=== PATIENT | female | born 1965 | race Caucasian/White ===

== ENCOUNTER 2017-07-31 05:23 | Inpatient (IN) ==
[2017-07-31] MEDS ORDERED: Dexamethasone 4 MG/ML VIAL IVP ONE (05:35)
--- NOTE | 2017-07-31 06:07 | Emergency Department Note ---
START Narrative - START START: This is a start note. I reviewed vital signs, nursing notes. I saw patient upon her arrival to exam room. Patient is a 51-year-old female that arrives via squad with reported altered mental status. Squad reports the family had reported the patient had become more tired, confused throughout the course the day. Squad reports that there is proximally with patient, as they usually picked her up for her transfer to her dialysis. The mention that she was more confused, which is atypical for her. The also mention the patient had several hypotensive readings, GB 127 Patient mentions that she was too shaky to take her Solu-Cortef that she mentions she needs for her adrenal insufficiency. Patient mentions that she feels more tired. He mentions she has been unable to urinate at all today, but usually she is able to urinate. Patient's last dialysis was 3 days ago (monday). She denies any recent illness , chest pain, shortness breath, abdominal pain. This is a start note. Care of this patient will be continued by dayshift providers Cira Beltran CNP and if needed the daytime attending physicians. Please see their further documentation for details, further evaluation and disposition of patient. I have ordered initial lab work for altered mental status, straight catheter, urinalysis. I have ordered IV Decadron, for possible adrenal crisis due to hypertension, and history of adrenal insufficiency.
[2017-07-31 06:26] LABS: Basophils % 0.7 %; Eosinophils # 0.3 K/mcL (0.0-0.6); Eosinophils % 4.7 %; Hematocrit 38.2 % (35.3-44.9); Hemoglobin 12.5 g/dL (11.5-15.4); Immature Granulocytes % 0.4 % (0-4); Lymphocytes # 1.7 K/mcL (0.6-4.6); Lymphocytes % 30.1 %; Mean Corpuscular HGB Conc 32.7 g/dL (31.6-35.5); Mean Corpuscular Hemoglobin 32.6 pg (28.0-33.3); Mean Corpuscular Volume 99.7 fL (83.0-100.0); Mean Platelet Volume 12.5 fL (9.4-12.4); Monocytes # 0.7 K/mcL (0.0-1.3); Monocytes % 11.6 %; Neutrophils # 2.9 K/mcL (1.6-8.9); Platelet Count 178 K/mcL (140-400); Red Blood Count 3.83 M/mcL (3.82-4.97); Red Cell Distribution Width 13.8 % (11.5-14.5); Segmented Neutrophils % 52.5 %
[2017-07-31 06:27] LABS: Bilirubin,Urine Negative (Negative); Blood,Urine Negative (Negative); Clarity,Urine Cloudy (Clear); Color,Urine Yellow (Yellow); Glucose,Urine (UA) Normal (Normal); Ketones,Urine Negative (Negative); Leukocyte Esterase,Urine Moderate (Negative); Nitrite,Urine Negative (Negative); Protein,Urine Negative (Neg-Trace); Specific Gravity,Urine 1.014 (1.010-1.025); Urobilinogen,Urine Normal (Normal)
[2017-07-31 06:36] LABS: Bacteria,Urine Moderate per hpf (None-Few); Hyaline Casts,Urine None Seen per lpf (None-Few); RBC,Urine 0-3 per hpf (0-3); Squamous Epithelial Cell,Urine None Seen per lpf (None-Few); WBC,Urine 50-100 per hpf (0-3)
[2017-07-31 06:38] LABS: Amphetamine Screen,Urine Negative ng/mL (Cutoff=1000); Barbiturate Screen,Urine Negative ng/mL (Cutoff=200); Benzodiazepines Screen,Urine Negative ng/mL (Cutoff=200); Cannabinoid Screen,Urine Negative ng/mL (Cutoff = 50); Cocaine Screen,Urine Negative ng/mL (Cutoff= 300); Phencyclidine Screen,Urine Negative ng/mL (Cutoff=25)
[2017-07-31 06:48] LABS: Alanine Aminotransferase 38 Units/L (7-52); Albumin 4.2 g/dL (3.5-5.7); Albumin/Globulin Ratio 1.6 (1.1-2.2); Alkaline Phosphatase 92 Units/L (34-104); Aspartate Amino Transferase 26 Units/L (13-39); BUN/Creatinine Ratio 8 (6-26); Bilirubin,Direct 0.1 mg/dL (0.0-0.2); Bilirubin,Indirect 0.5 mg/dL (0.0-1.2); Bilirubin,Total 0.6 mg/dL (0.3-1.0); Blood Urea Nitrogen 51 mg/dL (6-20); Calcium 10.1 mg/dL (8.6-10.3); Carbon Dioxide 33 mEq/L (23-29); Chloride 99 mEq/L (98-107); Ethanol < 10 mg/dL (Less than 10); Globulin 2.6 g/dL (2.4-3.5); Glucose 106 mg/dL (70-105); Osmolality,Calculated 312 (280-300); Potassium 3.6 mEq/L (3.5-5.1); Sodium 144 mEq/L (136-145); Total Protein 6.8 g/dL (6.4-8.9); Troponin I < 0.03 ng/mL (< 0.04); eGFR For African Americans 9 (> 60); eGFR For Non-African Americans 7 (> 60)
--- NOTE | 2017-07-31 06:49 | Emergency Department Note ---
Disposition Clinical Impression: UTI (urinary tract infection) Qualifiers: Urinary tract infection type: site unspecified Hematuria presence: without hematuria Qualified Code(s): N39.0 - Urinary tract infection, site not specified Altered mental status Qualifiers: Altered mental status type: somnolence Qualified Code(s): R40.0 - Somnolence Disposition: Admitted As Inpatient Condition: Fair Altered Mental Status HPI - General Chief Complaint: ED Altered Mental Status Stated Complaint: AMS Time Seen by Provider: 07/31/17 05:30 Source: EMS Limitations: altered mental status Nursing Notes Reviewed: Yes Vital Signs Reviewed: Yes - History of Present Illness HPI Narrative: 51 year old female with history of HTN, DM, chronic kidney disease (need hemodilysis), adrenal deficit, recent abdominal abscess and laparoscopic surgery , presents with mental status change. Pt was sent to hospital by EMS. Per EMS reported, pt was supposed to be picked up for dialysis today. But her family concerned that she seems more confused for a day. Pt stated she was shaky and tired than usual. No chill and fever. No abdominal pain. EMS reported her initial blood pressure was low. BS level 129. Follow up with Nephrology Dr. Montilla. complaint: altered mental status Onset (ago): day(s) (1) Consistency of Symptoms: waxing and waning Context: history of similar presentation Associated symptoms: Reports: malaise - Related Data Home Medications Medication Instructions Recorded Confirmed Dexlansoprazole [Dexilant] 60 mg PO DAILY 01/24/16 07/31/17 FLUoxetine HCl [Prozac] 40 mg PO DAILY 01/24/16 07/31/17 Fluticasone/Salmeterol [Advair Hfa 2 puff IH BID 01/24/16 07/31/17 230-21 Mcg Inhaler] Insulin LISPRO [HumaLOG] 0 units SQ TIDWM 01/24/16 07/31/17 Ipratropium/Albuterol Neb [Duoneb] 3 ml IH Q6HR 01/24/16 07/31/17 Montelukast [Singulair] 10 mg PO DAILY 01/24/16 07/31/17 Ondansetron HCl [Zofran] 4 mg PO Q8H PRN 01/24/16 07/31/17 hydrOXYzine HCl [Hydroxyzine HCl] 25 mg PO TID 01/24/16 07/31/17 Bumetanide [Bumex] 2 mg PO BID 05/06/16 07/31/17 Allopurinol [Zyloprim 100 MG] 100 mg PO DAILY 07/31/17 07/31/17 Aspirin [Lo-Dose Aspirin EC] 81 mg PO DAILY 07/31/17 07/31/17 Atorvastatin [Lipitor] 40 mg PO HS 07/31/17 07/31/17 Clindamycin Phosphate [Cleocin T] 1 appl TP DAILY 07/31/17 07/31/17 Gabapentin [Neurontin] 100 mg PO TID 07/31/17 07/31/17 HYDROcodone/Acet 10/325 mg [[place] 1 tab PO TID 07/31/17 07/31/17 10-325 mg] Hydrochlorothiazide [Microzide] 12.5 mg PO DAILY 07/31/17 07/31/17 Isosorbide MONOnitrate (24 HR) 30 mg PO DAILY 07/31/17 07/31/17 [Imdur] Liraglutide [Victoza 2-Nilson] 0.6 mg PO DAILY 07/31/17 07/31/17 Metoprolol Tartrate [Lopressor] 50 mg PO BID 07/31/17 07/31/17 Nystatin Cream [Mycostatin Cream] 1 appl TP TID 07/31/17 07/31/17 Nystatin POWDER [Nystop] 1 appl TP TID 07/31/17 07/31/17 Polyethylene Glycol 3350 [MiraLAX] 17 gm PO DAILY 07/31/17 07/31/17 Previous Rx's Medication Instructions Recorded Hydrocortisone [Cortef] 10 mg PO DAILY #25 tablet 01/10/17 Allergies Allergy/AdvReac Type Severity Reaction Status Date / Time cefdinir Allergy Hives Verified 04/03/17 13:50 ciprofloxacin [From Cipro] Allergy Hives Verified 04/03/17 13:50 levofloxacin [From Levaquin] Allergy Anaphylaxis Verified 04/03/17 13:50 metformin [From Glucophage] Allergy Rash Verified 04/03/17 13:50 Penicillins Allergy Hives Verified 04/03/17 13:50 pioglitazone [From Actos] Allergy Hives Verified 04/03/17 13:50 Sulfa (Sulfonamide Allergy Itching Verified 04/03/17 13:50 Antibiotics) sulfamethoxazole Allergy Itching Verified 04/03/17 13:50 [From Bactrim] trimethoprim [From Bactrim] Allergy Itching Verified 04/03/17 13:50 exenatide [From Byetta] AdvReac See Verified 04/03/17 13:50 Comments vancomycin AdvReac See Verified 04/03/17 13:50 Comments Constitutional: Reports: weakness. Denies: fever, chills Eyes: Denies: eye pain, eye discharge, vision change ENT ED: Denies: ear pain, throat pain, dental pain Cardiovascular: Denies: chest pain, palpitations, dyspnea on exertion Respiratory: Denies: cough, dyspnea, wheezes Gastrointestinal: Denies: abdominal pain, nausea, vomiting Genitourinary: Denies: urgency, dysuria, frequency Musculoskeletal: Denies: back pain, neck pain, joint swelling Integumentary: Denies: rash, abrasion, lesions Neurological: Reports: weakness, confusion. Denies: headache Psychiatric: Denies: anxiety, depression, suicidal thoughts Endocrine: Denies: fatigue, heat or cold intolerance Hematological/Lymphatic: Denies: easy bleeding, easy bruising Allergic/Immunologic: Denies: facial swelling, urticaria Past Medical History - Past Medical History Medical history: Reports: non-contributory, arthritis, asthma, atrial fibrillation, CHF, COPD, coronary artery disease, diabetes, dialysis, GERD, hyperlipidemia, hypertension, migraine, renal disease, seizures, thyroid disease Surgical history: Reports: non-contributory, cholecystectomy Psychiatric history: Reports: depression COUNTY COMMISSIONER history: Reports: no COUNTY COMMISSIONER history - Social History Smoking Status: Never smoker Smokeless Tobacco Status: No Alcohol use: Reports: none Drug use: Reports: none Physical Exam - General Limitations: altered mental status General appearance: lethargic - Head Head exam: atraumatic, normal inspection - Eye Eye exam: Present: normal appearance. Absent: scleral icterus, conjunctival injection - ENT ENT exam: normal exam, normal external ear exam - Neck Neck exam: Present: normal inspection, full ROM, trachea midline - Chest Chest inspection: Present: normal inspection, symmetric chest wall rise. Absent : tenderness - Respiratory Respiratory exam: Present: normal lung sounds bilaterally. Absent: respiratory distress, wheezes - Cardiovascular Cardiovascular exam: Present: regular rate, normal rhythm - Abdominal Exam Abdominal exam: Present: soft, Non-Tender, other (a surgical wound from laparoscopic surgery three weeks ago) - Extremities Exam Extremities exam: Present: normal inspection, full ROM. Absent: tenderness - Back Exam Back exam: Present: normal inspection, full ROM. Absent: tenderness - Neurological Exam Neurological exam: Present: alert, oriented X3, other (pt is alert and oriented in ER, she seems lethargic) - Psychiatric Psychiatric exam: Present: normal affect, normal mood - Skin Skin exam: Present: warm, intact Course Vital Signs Temperature 98.4 F 07/31/17 05:27 Pulse Rate 62 07/31/17 05:27 Respiratory Rate 18 07/31/17 05:27 Blood Pressure 124/82 07/31/17 05:27 O2 Sat by Pulse Oximetry 100 07/31/17 05:27 Temperature 97.7 F 07/31/17 07:36 Pulse Rate 58 07/31/17 07:36 Respiratory Rate 16 07/31/17 07:36 Blood Pressure 124/82 07/31/17 05:27 O2 Sat by Pulse Oximetry 96 07/31/17 07:36 Oxygen Delivery Oxygen Delivery Room Air,Nasal Cannula Altered Mental Status - MDM Narrative Medical decision making narrative: 51 year old female with history of chronic kidney disease, adrenal deficit, HTN , DM, presents with mental status change. pt reported she felt shaky and more tired since yesterday. no chill and fever. Physical exam: pt is lethargic, bilateral lungs clear, abdomen soft, no tender to palpation, no other focal neurology deficit. Labs: UA: moderate Leukocyte, moderate bacteria. normal white cell and Lactic acid, CR. >6. chest xr: no acute change. Impression: altered mental status, UTI, chronic kidney disease (need dialysis). Started Rocephin in ER. Dr. Branden Camacho saw the pt as well, agrees to admit pt for further evaluation. 8:30 am spoke with Hospitalist Dr. Couch about this case, who accepted pt. - Lab Data Lab results reviewed: Yes I reviewed the patient's lab results. Result diagrams: 07/31/17 06:05 07/31/17 06:05 Lab Results 07/31/17 07/31/17 07/31/17 Range/Units 06:05 06:05 06:19 WBC 5.6 (4.3-11.1) K/mcL RBC 3.83 (3.82-4.97) M/mcL Hgb 12.5 (11.5-15.4) g/dL Hct 38.2 (35.3-44.9) % MCV 99.7 (83.0-100.0) fL MCH 32.6 (28.0-33.3) pg MCHC 32.7 (31.6-35.5) g/dL RDW 13.8 (11.5-14.5) % Plt Count 178 (140-400) K/mcL MPV 12.5 H (9.4-12.4) fL Immature Gran % 0.4 (0-4) % Seg Neutrophils % 52.5 % Lymphocytes % 30.1 % Monocytes % 11.6 % Eosinophils % 4.7 % Basophils % 0.7 % Neutrophils # 2.9 (1.6-8.9) K/mcL Lymphocytes # 1.7 (0.6-4.6) K/mcL Monocytes # 0.7 (0.0-1.3) K/mcL Eosinophils # 0.3 (0.0-0.6) K/mcL Basophils # 0.0 (0.0-0.2) K/mcL Sodium 144 (136-145) mEq/L Potassium 3.6 (3.5-5.1) mEq/L Chloride 99 (98-107) mEq/L Carbon Dioxide 33 H (23-29) mEq/L BUN 51 H (6-20) mg/dL Creatinine 6.16 H (0.60-1.20) mg/dL Est GFR ( Amer) 9 L (> 60) Est GFR (Non-Af Amer) 7 L (> 60) BUN/Creatinine Ratio 8 (6-26) Glucose 106 H (70-105) mg/dL Calculated Osmolality 312 H (280-300) Lactic Acid (0.5-2.2) mmol/L Calcium 10.1 (8.6-10.3) mg/dL Total Bilirubin 0.6 (0.3-1.0) mg/dL Direct Bilirubin 0.1 (0.0-0.2) mg/dL Indirect Bilirubin 0.5 (0.0-1.2) mg/dL AST 26 (13-39) Units/L ALT 38 (7-52) Units/L Alkaline Phosphatase 92 (34-104) Units/L Ammonia (16-53) mcmol/L Troponin I < 0.03 (< 0.04) ng/mL Serum Total Protein 6.8 (6.4-8.9) g/dL Albumin 4.2 (3.5-5.7) g/dL Globulin 2.6 (2.4-3.5) g/dL Albumin/Globulin Ratio 1.6 (1.1-2.2) Urine Color Yellow (Yellow) Urine Clarity Cloudy A (Clear) Urine pH 6.0 (5.0-8.0) pH Units Ur Specific [place] 1.014 (1.010-1.025) Urine Protein Negative (Neg-Trace) mg/dL Urine Glucose (UA) Normal (Normal) mg/dL Urine Ketones Negative (Negative) mg/dL Urine Blood Negative (Negative) Urine Nitrite Negative (Negative) Urine Bilirubin Negative (Negative) Urine Urobilinogen Normal (Normal) mg/dL Ur Leukocyte Esterase Moderate H (Negative) Urine Microscopic RBC 0-3 (0-3) per hpf Urine Microscopic WBC 50-100 H (0-3) per hpf Ur Squamous Epith Cells None Seen (None-Few) per lpf Urine Bacteria Moderate H (None-Few) per hpf Hyaline Casts None Seen (None-Few) per lpf Ur Culture Indicated? YES A (NO) Urine Opiates Screen (Wwqaax=806) ng/mL Ur Barbiturates Screen (Jlvqdh=659) ng/mL Ur Phencyclidine Scrn (Cutoff=25) ng/mL Ur Amphetamines Screen (Mwxrdq=4439) ng/mL U Benzodiazepines Scrn (Ijesuy=547) ng/mL Urine Cocaine Screen (Cutoff= 300) ng/mL U Marijuana (THC) Screen (Cutoff = 50) ng/mL Ethyl Alcohol < 10 (Less than 10) mg/dL 07/31/17 07/31/17 07/31/17 Range/Units 06:19 06:19 08:10 WBC (4.3-11.1) K/mcL RBC (3.82-4.97) M/mcL Hgb (11.5-15.4) g/dL Hct (35.3-44.9) % MCV (83.0-100.0) fL MCH (28.0-33.3) pg MCHC (31.6-35.5) g/dL RDW (11.5-14.5) % Plt Count (140-400) K/mcL MPV (9.4-12.4) fL Immature Gran % (0-4) % Seg Neutrophils % % Lymphocytes % % Monocytes % % Eosinophils % % Basophils % % Neutrophils # (1.6-8.9) K/mcL Lymphocytes # (0.6-4.6) K/mcL Monocytes # (0.0-1.3) K/mcL Eosinophils # (0.0-0.6) K/mcL Basophils # (0.0-0.2) K/mcL Sodium (136-145) mEq/L Potassium (3.5-5.1) mEq/L Chloride (98-107) mEq/L Carbon Dioxide (23-29) mEq/L BUN (6-20) mg/dL Creatinine (0.60-1.20) mg/dL Est GFR ( Amer) (> 60) Est GFR (Non-Af Amer) (> 60) BUN/Creatinine Ratio (6-26) Glucose (70-105) mg/dL Calculated Osmolality (280-300) Lactic Acid 1.6 (0.5-2.2) mmol/L Calcium (8.6-10.3) mg/dL Total Bilirubin (0.3-1.0) mg/dL Direct Bilirubin (0.0-0.2) mg/dL Indirect Bilirubin (0.0-1.2) mg/dL AST (13-39) Units/L ALT (7-52) Units/L Alkaline Phosphatase (34-104) Units/L Ammonia 27 (16-53) mcmol/L Troponin I (< 0.04) ng/mL Serum Total Protein (6.4-8.9) g/dL Albumin (3.5-5.7) g/dL Globulin (2.4-3.5) g/dL Albumin/Globulin Ratio (1.1-2.2) Urine Color (Yellow) Urine Clarity (Clear) Urine pH (5.0-8.0) pH Units Ur Specific [place] (1.010-1.025) Urine Protein (Neg-Trace) mg/dL Urine Glucose (UA) (Normal) mg/dL Urine Ketones (Negative) mg/dL Urine Blood (Negative) Urine Nitrite (Negative) Urine Bilirubin (Negative) Urine Urobilinogen (Normal) mg/dL Ur Leukocyte Esterase (Negative) Urine Microscopic RBC (0-3) per hpf Urine Microscopic WBC (0-3) per hpf Ur Squamous Epith Cells (None-Few) per lpf Urine Bacteria (None-Few) per hpf Hyaline Casts (None-Few) per lpf Ur Culture Indicated? (NO) Urine Opiates Screen Positive H (Gnkczb=257) ng/mL Ur Barbiturates Screen Negative (Obsdyp=941) ng/mL Ur Phencyclidine Scrn Negative (Cutoff=25) ng/mL Ur Amphetamines Screen Negative (Ygyidn=5953) ng/mL U Benzodiazepines Scrn Negative (Xlmaah=344) ng/mL Urine Cocaine Screen Negative (Cutoff= 300) ng/mL U Marijuana (THC) Screen Negative (Cutoff = 50) ng/mL Ethyl Alcohol (Less than 10) mg/dL - Radiology Data Radiology results reviewed: Yes I reviewed the patient's radiology results. HISTORY: ORDERING SYSTEM PROVIDED HISTORY: altered mental status Asthma, atrial fibrillation, congestive heart failure, COPD, hypertension FINDINGS: Evaluation is limited by the patient's body habitus the portable technique. Bra hooks project over the left side of the chest. There is no definite acute airspace disease. The heart size is mildly enlarged. There is no large pleural effusion or definite evidence for pneumothorax. XR/XR chest 1V portable IMPRESSION: Limited but grossly negative portable chest. D/ / Uziel Burgos MD / Uziel Burgos MD Interpreting Provider: Uziel Burgos MD Checklist - LKW: 3-4.5 hrs Add. Warnings/Precautions Patient/family understanding: The patient/family members have been counseled and understood the risk, benefit , and alternatives of treatment.
[2017-07-31] MEDS ORDERED: cefTRIAXone 2,000 MG in 0.9 % Sodium Chloride Mini Bag 100 ML IVPB ONE (08:11)
--- NOTE | 2017-07-31 08:22 | Emergency Department Note ---
Disposition Clinical Impression: UTI (urinary tract infection) Qualifiers: Urinary tract infection type: site unspecified Hematuria presence: without hematuria Qualified Code(s): N39.0 - Urinary tract infection, site not specified Disposition: Admitted As Inpatient Referrals: Keli Montilla DO [Primary Care Provider] - Forms: ED Satisfaction Letter General Adult HPI - General Chief complaint: ED Altered Mental Status Stated complaint: AMS Time Seen by Provider: 07/31/17 05:30 Source: EMS Limitations: altered mental status - History of Present Illness Pain Scale: 0 - Related Data Home Medications Medication Instructions Recorded Confirmed Allopurinol [Zyloprim] 100 mg PO DAILY 01/24/16 07/16/17 Aspirin [Lo-Dose Aspirin EC] 81 mg PO DAILY 01/24/16 07/16/17 Atorvastatin Calcium [Lipitor] 80 mg PO DAILY 01/24/16 07/16/17 Baclofen [Lioresal] 10 mg PO TID 01/24/16 07/16/17 Dexlansoprazole [Dexilant] 60 mg PO DAILY 01/24/16 07/16/17 FLUoxetine HCl [Prozac] 40 mg PO DAILY 01/24/16 07/16/17 Fluticasone/Salmeterol [Advair Hfa 2 puff IH BID 01/24/16 07/16/17 230-21 Mcg Inhaler] Gabapentin [Neurontin] 300 mg PO TID 01/24/16 07/16/17 HYDROcodone/Acet 5/325 mg [Arma 1 tab PO Q8H PRN 01/24/16 07/16/17 5-325 mg] Insulin LISPRO [HumaLOG] 2 - 16 units SQ TIDWM 01/24/16 07/16/17 Ipratropium/Albuterol Neb [Duoneb] 3 ml IH Q6HR 01/24/16 07/16/17 Metoprolol XL (24 HR) Succ [Toprol 100 mg PO BID 01/24/16 07/16/17 Xl] Montelukast [Singulair] 10 mg PO DAILY 01/24/16 07/16/17 Ondansetron HCl [Zofran] 4 mg PO Q8H PRN 01/24/16 07/16/17 hydrOXYzine HCl [Hydroxyzine HCl] 25 mg PO TID 01/24/16 07/16/17 Bumetanide [Bumex] 1 mg PO DAILY 05/06/16 07/16/17 Previous Rx's Medication Instructions Recorded Benzonatate [Tessalon] 100 mg PO TID #15 capsule 01/10/17 Hydrocortisone [Cortef] 10 mg PO DAILY #25 tablet 01/10/17 Clindamycin HCl 150 mg PO TID #21 capsule 03/01/17 Erythromycin OPTH Oint 1 appl RIGHT EYE QID #1 tube 03/01/17 Nitrofurantoin (BID) [Macrobid] 100 mg PO BID #10 capsule 04/03/17 Oseltamivir [Tamiflu] 75 mg PO BID #10 capsule 04/03/17 Allergies Allergy/AdvReac Type Severity Reaction Status Date / Time cefdinir Allergy Hives Verified 04/03/17 13:50 ciprofloxacin [From Cipro] Allergy Hives Verified 04/03/17 13:50 levofloxacin [From Levaquin] Allergy Anaphylaxis Verified 04/03/17 13:50 metformin [From Glucophage] Allergy Rash Verified 04/03/17 13:50 Penicillins Allergy Hives Verified 04/03/17 13:50 pioglitazone [From Actos] Allergy Hives Verified 04/03/17 13:50 Sulfa (Sulfonamide Allergy Itching Verified 04/03/17 13:50 Antibiotics) sulfamethoxazole Allergy Itching Verified 04/03/17 13:50 [From Bactrim] trimethoprim [From Bactrim] Allergy Itching Verified 04/03/17 13:50 exenatide [From Byetta] AdvReac See Verified 04/03/17 13:50 Comments vancomycin AdvReac See Verified 04/03/17 13:50 Comments Constitutional: Reports: weakness. Denies: fever, chills Eyes: Denies: eye pain, eye discharge, vision change ENT ED: Denies: ear pain, throat pain, dental pain Cardiovascular: Denies: chest pain, palpitations, dyspnea on exertion Respiratory: Denies: cough, dyspnea, wheezes Gastrointestinal: Denies: abdominal pain, nausea, vomiting Genitourinary: Denies: urgency, dysuria, frequency Musculoskeletal: Denies: back pain, neck pain, joint swelling Integumentary: Denies: rash, abrasion, lesions Neurological: Reports: weakness, confusion. Denies: headache Psychiatric: Denies: anxiety, depression, suicidal thoughts Endocrine: Denies: fatigue, heat or cold intolerance Hematological/Lymphatic: Denies: easy bleeding, easy bruising Allergic/Immunologic: Denies: facial swelling, urticaria Past Medical History - Past Medical History Medical history: Reports: non-contributory, arthritis, asthma, atrial fibrillation, CHF, COPD, coronary artery disease, diabetes, dialysis, GERD, hyperlipidemia, hypertension, migraine, renal disease, seizures, thyroid disease Surgical history: Reports: non-contributory, cholecystectomy Psychiatric history: Reports: depression [employer] SUPER[employer]OR history: Reports: 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 - Social History Smoking Status: Never smoker Smokeless Tobacco Status: No Alcohol use: Reports: none Drug use: Reports: none Physical Exam - General Limitations: altered mental status General appearance: lethargic Course Vital Signs Temperature 98.4 F 07/31/17 05:27 Pulse Rate 62 07/31/17 05:27 Respiratory Rate 18 07/31/17 05:27 Blood Pressure 124/82 07/31/17 05:27 O2 Sat by Pulse Oximetry 100 07/31/17 05:27 Temperature 97.7 F 07/31/17 07:36 Pulse Rate 58 07/31/17 07:36 Respiratory Rate 16 07/31/17 07:36 Blood Pressure 124/82 07/31/17 05:27 O2 Sat by Pulse Oximetry 96 07/31/17 07:36 Oxygen Delivery Oxygen Delivery Room Air,Nasal Cannula Medical Decision Making - Lab Data Result diagrams: 07/31/17 06:05 07/31/17 06:05 Lab Results 07/31/17 07/31/17 07/31/17 Range/Units 06:05 06:05 06:19 WBC 5.6 (4.3-11.1) K/mcL RBC 3.83 (3.82-4.97) M/mcL Hgb 12.5 (11.5-15.4) g/dL Hct 38.2 (35.3-44.9) % MCV 99.7 (83.0-100.0) fL MCH 32.6 (28.0-33.3) pg MCHC 32.7 (31.6-35.5) g/dL RDW 13.8 (11.5-14.5) % Plt Count 178 (140-400) K/mcL MPV 12.5 H (9.4-12.4) fL Immature Gran % 0.4 (0-4) % Seg Neutrophils % 52.5 % Lymphocytes % 30.1 % Monocytes % 11.6 % Eosinophils % 4.7 % Basophils % 0.7 % Neutrophils # 2.9 (1.6-8.9) K/mcL Lymphocytes # 1.7 (0.6-4.6) K/mcL Monocytes # 0.7 (0.0-1.3) K/mcL Eosinophils # 0.3 (0.0-0.6) K/mcL Basophils # 0.0 (0.0-0.2) K/mcL Sodium 144 (136-145) mEq/L Potassium 3.6 (3.5-5.1) mEq/L Chloride 99 (98-107) mEq/L Carbon Dioxide 33 H (23-29) mEq/L BUN 51 H (6-20) mg/dL Creatinine 6.16 H (0.60-1.20) mg/dL Est GFR ( Amer) 9 L (> 60) Est GFR (Non-Af Amer) 7 L (> 60) BUN/Creatinine Ratio 8 (6-26) Glucose 106 H (70-105) mg/dL Calculated Osmolality 312 H (280-300) Lactic Acid (0.5-2.2) mmol/L Calcium 10.1 (8.6-10.3) mg/dL Total Bilirubin 0.6 (0.3-1.0) mg/dL Direct Bilirubin 0.1 (0.0-0.2) mg/dL Indirect Bilirubin 0.5 (0.0-1.2) mg/dL AST 26 (13-39) Units/L ALT 38 (7-52) Units/L Alkaline Phosphatase 92 (34-104) Units/L Troponin I < 0.03 (< 0.04) ng/mL Serum Total Protein 6.8 (6.4-8.9) g/dL Albumin 4.2 (3.5-5.7) g/dL Globulin 2.6 (2.4-3.5) g/dL Albumin/Globulin Ratio 1.6 (1.1-2.2) Urine Color Yellow (Yellow) Urine Clarity Cloudy A (Clear) Urine pH 6.0 (5.0-8.0) pH Units Ur Specific [place] 1.014 (1.010-1.025) Urine Protein Negative (Neg-Trace) mg/dL Urine Glucose (UA) Normal (Normal) mg/dL Urine Ketones Negative (Negative) mg/dL Urine Blood Negative (Negative) Urine Nitrite Negative (Negative) Urine Bilirubin Negative (Negative) Urine Urobilinogen Normal (Normal) mg/dL Ur Leukocyte Esterase Moderate H (Negative) Urine Microscopic RBC 0-3 (0-3) per hpf Urine Microscopic WBC 50-100 H (0-3) per hpf Ur Squamous Epith Cells None Seen (None-Few) per lpf Urine Bacteria Moderate H (None-Few) per hpf Hyaline Casts None Seen (None-Few) per lpf Ur Culture Indicated? YES A (NO) Ur Barbiturates Screen (Ejgnqu=824) ng/mL Ur Phencyclidine Scrn (Cutoff=25) ng/mL Ur Amphetamines Screen (Peszae=8239) ng/mL U Benzodiazepines Scrn (Aeavin=347) ng/mL Urine Cocaine Screen (Cutoff= 300) ng/mL U Marijuana (THC) Screen (Cutoff = 50) ng/mL Ethyl Alcohol < 10 (Less than 10) mg/dL 07/31/17 07/31/17 Range/Units 06:19 06:19 WBC (4.3-11.1) K/mcL RBC (3.82-4.97) M/mcL Hgb (11.5-15.4) g/dL Hct (35.3-44.9) % MCV (83.0-100.0) fL MCH (28.0-33.3) pg MCHC (31.6-35.5) g/dL RDW (11.5-14.5) % Plt Count (140-400) K/mcL MPV (9.4-12.4) fL Immature Gran % (0-4) % Seg Neutrophils % % Lymphocytes % % Monocytes % % Eosinophils % % Basophils % % Neutrophils # (1.6-8.9) K/mcL Lymphocytes # (0.6-4.6) K/mcL Monocytes # (0.0-1.3) K/mcL Eosinophils # (0.0-0.6) K/mcL Basophils # (0.0-0.2) K/mcL Sodium (136-145) mEq/L Potassium (3.5-5.1) mEq/L Chloride (98-107) mEq/L Carbon Dioxide (23-29) mEq/L BUN (6-20) mg/dL Creatinine (0.60-1.20) mg/dL Est GFR ( Amer) (> 60) Est GFR (Non-Af Amer) (> 60) BUN/Creatinine Ratio (6-26) Glucose (70-105) mg/dL Calculated Osmolality (280-300) Lactic Acid 1.6 (0.5-2.2) mmol/L Calcium (8.6-10.3) mg/dL Total Bilirubin (0.3-1.0) mg/dL Direct Bilirubin (0.0-0.2) mg/dL Indirect Bilirubin (0.0-1.2) mg/dL AST (13-39) Units/L ALT (7-52) Units/L Alkaline Phosphatase (34-104) Units/L Troponin I (< 0.04) ng/mL Serum Total Protein (6.4-8.9) g/dL Albumin (3.5-5.7) g/dL Globulin (2.4-3.5) g/dL Albumin/Globulin Ratio (1.1-2.2) Urine Color (Yellow) Urine Clarity (Clear) Urine pH (5.0-8.0) pH Units Ur Specific [place] (1.010-1.025) Urine Protein (Neg-Trace) mg/dL Urine Glucose (UA) (Normal) mg/dL Urine Ketones (Negative) mg/dL Urine Blood (Negative) Urine Nitrite (Negative) Urine Bilirubin (Negative) Urine Urobilinogen (Normal) mg/dL Ur Leukocyte Esterase (Negative) Urine Microscopic RBC (0-3) per hpf Urine Microscopic WBC (0-3) per hpf Ur Squamous Epith Cells (None-Few) per lpf Urine Bacteria (None-Few) per hpf Hyaline Casts (None-Few) per lpf Ur Culture Indicated? (NO) Ur Barbiturates Screen Negative (Ebitga=979) ng/mL Ur Phencyclidine Scrn Negative (Cutoff=25) ng/mL Ur Amphetamines Screen Negative (Cuupzm=9595) ng/mL U Benzodiazepines Scrn Negative (Qhwpem=710) ng/mL Urine Cocaine Screen Negative (Cutoff= 300) ng/mL U Marijuana (THC) Screen Negative (Cutoff = 50) ng/mL Ethyl Alcohol (Less than 10) mg/dL Attestation Statement - Attestation Attestation: I examined this patient and my medical decision-making was reviewed with the Resident Physician. I agree with the documented findings, disposition and treatment plan as described except to the extent set forth below. 51 year old female presnte to the Ed with alteredm ental status and drowsy and recieve dialysis and makes urine and doctors with Dr. Casas for nephrology. Bruce appears to have a UTI. Otherwise all other electrolytes are at baseline and her crn/gfr are at baseline. wE adan dmit to [facility] for AMS/UTI and continue dialysis therapy
[2017-07-31 08:26] LABS: Opiate Screen,Urine Positive ng/mL (Cutoff=300)
--- NOTE | 2017-07-31 12:33 | Internal Med History&Physical ---
Date of Encounter: 07/31/17 Time of Encounter: 11:00 Internal Medicine - H&P: HPI Chief complaint: Somnolence Admitted From: Home Plans for Post Hospital Care: Home History of present illness: Patient is a 51-year-old female with past medical history significant for end stage renal disease with hemodialysis, O2 dependent COPD (3-4 L nasal cannula), ischemic cardiomyopathy, adrenal insufficiency, hypertension, hyperlipidemia, diabetes and mood disorder who presents to the ER on 07/31/17 due to 1 day history of extreme fatigue. Patient not able to give much history because of extreme somnolence during exam. She does mention that she has these symptoms with adrenal crisis in the past. She also states that she missed her hemodialysis today due to extreme somnolence. In the ER, patient was found to have pyuria on urinalysis and a creatinine of 6.16 and GFR of 7. In the ER, patient was given a one-time dose of Decadron 4 mg IV in addition to a one-time dose of ceftriaxone. A random cortisol level was ordered by myself which was 3.8. She will be admitted to the progressive unit for adrenal crisis with urinary tract infection. Past Med Surg Social Fam HX - Past Medical History Medical history: non-contributory, arthritis, asthma, atrial fibrillation, CHF, COPD, coronary artery disease, diabetes, dialysis, GERD, hyperlipidemia, hypertension, migraine, renal disease, seizures, thyroid disease Psychiatric history: depression - Past Surgical History Surgical History: non-contributory, cholecystectomy - Social History Smoking Status: Never smoker Smokeless Tobacco Status: No Alcohol use: none Drug use: none - Family History Mother Living Status: Hx Family Cardiac Disorders: Yes Father Living Status: Hx Family Cardiac Disorders: Yes Internal Medicine - H&P: Meds Dexlansoprazole [Dexilant] 60 mg PO DAILY 01/24/16 [History] FLUoxetine HCl [Prozac] 40 mg PO DAILY 01/24/16 [History] Fluticasone/Salmeterol [Advair Hfa 230-21 Mcg Inhaler] 2 puff IH BID 01/24/16 [ History] Insulin LISPRO [HumaLOG] 0 units SQ TIDWM 01/24/16 [History] Ipratropium/Albuterol Neb [Duoneb] 3 ml IH Q6HR 01/24/16 [History] Montelukast [Singulair] 10 mg PO DAILY 01/24/16 [History] Ondansetron HCl [Zofran] 4 mg PO Q8H PRN 01/24/16 [History] hydrOXYzine HCl [Hydroxyzine HCl] 25 mg PO TID 01/24/16 [History] Bumetanide [Bumex] 2 mg PO BID 05/06/16 [History] Hydrocortisone [Cortef] 10 mg PO DAILY #25 tablet 01/10/17 [Rx] Allopurinol [Zyloprim 100 MG] 100 mg PO DAILY 07/31/17 [History] Aspirin [Lo-Dose Aspirin EC] 81 mg PO DAILY 07/31/17 [History] Atorvastatin [Lipitor] 40 mg PO HS 07/31/17 [History] Clindamycin Phosphate [Cleocin T] 1 appl TP DAILY 07/31/17 [History] Gabapentin [Neurontin] 100 mg PO TID 07/31/17 [History] HYDROcodone/Acet 10/325 mg [[place] 10-325 mg] 1 tab PO TID 07/31/17 [History] Hydrochlorothiazide [Microzide] 12.5 mg PO DAILY 07/31/17 [History] Isosorbide MONOnitrate (24 HR) [Imdur] 30 mg PO DAILY 07/31/17 [History] Liraglutide [Victoza 2-Nilson] 0.6 mg PO DAILY 07/31/17 [History] Metoprolol Tartrate [Lopressor] 50 mg PO BID 07/31/17 [History] Nystatin Cream [Mycostatin Cream] 1 appl TP TID 07/31/17 [History] Nystatin POWDER [Nystop] 1 appl TP TID 07/31/17 [History] Polyethylene Glycol 3350 [MiraLAX] 17 gm PO DAILY 07/31/17 [History] 3 Allergy/AdvReac Type Severity Reaction Status Date / Time cefdinir Allergy Hives Verified 04/03/17 13:50 ciprofloxacin [From Cipro] Allergy Hives Verified 04/03/17 13:50 levofloxacin [From Levaquin] Allergy Anaphylaxis Verified 04/03/17 13:50 metformin [From Glucophage] Allergy Rash Verified 04/03/17 13:50 Penicillins Allergy Hives Verified 04/03/17 13:50 pioglitazone [From Actos] Allergy Hives Verified 04/03/17 13:50 Sulfa (Sulfonamide Allergy Itching Verified 04/03/17 13:50 Antibiotics) sulfamethoxazole Allergy Itching Verified 04/03/17 13:50 [From Bactrim] trimethoprim [From Bactrim] Allergy Itching Verified 04/03/17 13:50 exenatide [From Byetta] AdvReac See Verified 04/03/17 13:50 Comments vancomycin AdvReac See Verified 04/03/17 13:50 Comments All Systems PM: A 10-system review of systems was performed and is negative for pertinent findings except as documented above in the HPI. - Constitutional Vitals: Temp Pulse Resp BP Pulse Ox 98.0 F 71 17 113/72 94 07/31/17 12:06 07/31/17 12:06 07/31/17 12:06 07/31/17 12:06 07/31/17 12:06 General appearance: Present: A&O X 3, morbidly obese, no acute distress - Eye Eye exam: Present: normal appearance - ENT ENT exam: Present: mucous membranes moist - Respiratory Respiratory exam: Present: CTAB. Absent: accessory muscle use, rales, rhonchi, wheezes - Cardiovascular Cardiovascular exam: Present: RRR, +S1, +S2. Absent: diastolic murmur, gallop, rubs, systolic murmur - GI/Abdominal GI/Abdominal exam: Present: normal bowel sounds, soft, no peritoneal signs. Absent: distended, tenderness - Extremities Exam Extremities exam: Absent: pedal edema - Neurological Exam Neurological exam: Present: oriented X3 - Psychiatric Psychiatric exam: Present: normal mood - Skin Skin exam: Present: normal color Internal Med - H&P Results - Labs CBC & Chem 7: 07/31/17 06:05 07/31/17 06:05 - Assessment and plan (1) Adrenal insufficiency Current Visit: No Status: Acute Assessment and plan: Patient very somnolent on exam with a random cortisol level of 3.8 She already received 4 mg of Decadron IV 1 in the ER Will order for 4 mg of Decadron IV to be given every 12 hours Will monitor vital signs every hour (2) Urinary tract infection Current Visit: Yes Status: Acute Assessment and plan: Patient found to have pyuria on urinalysis in the ER Will continue IV ceftriaxone; cultures pending Qualifiers: Urinary tract infection type: site unspecified Hematuria presence: without hematuria Qualified Code(s): N39.0 - Urinary tract infection, site not specified (3) Acute hypercapnic respiratory failure due to obstructive sleep apnea Current Visit: No Status: Acute Assessment and plan: Will continue supplemental oxygenation (4) Obesity Current Visit: Yes Status: Acute Assessment and plan: BMI of 59.2 Qualifiers: Body mass index: BMI 50.0-59.9 Qualified Code(s): E66.9 - Obesity, unspecified; Z68.43 - Body mass index (BMI) 50-59.9 , adult (5) DVT prophylaxis Current Visit: No Status: Acute Assessment and plan: Subcutaneous heparin - Time Spent With Patient Total time spent is greater than 50% in coordination of care (as documented) at patient's floor/unit and/or counseling patient:
[2017-07-31] MEDS ORDERED: Naloxone 0.4 MG/ML INJ IVP PRN (12:46)
[2017-07-31] MEDS: *HR* Heparin 5,000 UNIT/ML VIAL SQ SCH ×2 (15:05→22:31)
[2017-07-31] MEDS: *HR* HYDROcodone/Acet 10/325 mg TABLET PO SCH ×2 (15:05→20:04)
[2017-07-31] MEDS: Gabapentin 100 MG CAPSULE PO SCH ×2 (15:05→20:03)
[2017-07-31] MEDS: cefTRIAXone 2,000 MG in Water for inj. (sterile) 20 ML 20 ML IVP SCH (15:06)
[2017-07-31] MEDS: Nystatin POWDER 30 GM BOTTLE TP SCH ×2 (15:07→22:32)
[2017-07-31] MEDS: Nystatin Cream 15 GM TUBE TP SCH ×2 (15:07→22:32)
[2017-07-31] MEDS: Ipratropium/Albuterol Neb 3 ML IH SCH ×2 (16:26→22:56)
--- NOTE | 2017-07-31 17:10 | Electrocardiograph Report ---
[place] [facility] Test Date: 2017-07-31 Pat Name: Samina Jimenez Department: 102 Room: 2N12 Gender: F Slurry Control Tender: : 1965 Requested By: Saad Blanchard Order Number: [id number] Reading MD: Ayaz Carter Measurements Intervals [place] Rate: 58 P: 39 [place]: 189 QRS: 47 QRSD: 132 T: 34 QT: 430 QTc: 428 Interpretive Statements SINUS BRADYCARDIA INTRAVENTRICULAR CONDUCTION DELAY [130+ ms QRS DURATION] POSSIBLE LATERAL MYOCARDIAL INFARCTION [30 ms Q WAVE IN I/aVL/V5/V6], OF INDETERMINATE AGE Electronically Signed On 07-31-2017 17:08:56 EDT by Ayaz Carter
[2017-07-31] MEDS: Dexamethasone 4 MG/ML VIAL IVP SCH (17:22)
[2017-07-31] MEDS: Bumetanide 1 MG TABLET PO SCH (20:03)
[2017-07-31] MEDS: Budesonide/Formoterol 160/4.5 MDI IH SCH (22:56)
[2017-08-01] MEDS: Ipratropium/Albuterol Neb 3 ML IH SCH ×3 (04:16→10:55)
[2017-08-01] MEDS: Dexamethasone 4 MG/ML VIAL IVP SCH ×2 (04:57→17:30)
[2017-08-01] MEDS: *HR* Heparin 5,000 UNIT/ML VIAL SQ SCH ×3 (04:57→21:12)
[2017-08-01 06:51] LABS: Basophils % 0.3 %; Eosinophils % 0.3 %; Hematocrit 34.2 % (35.3-44.9); Hemoglobin 11.2 g/dL (11.5-15.4); Immature Granulocytes % 2.9 % (0-4); Lymphocytes # 0.8 K/mcL (0.6-4.6); Lymphocytes % 10.4 %; Mean Corpuscular HGB Conc 32.7 g/dL (31.6-35.5); Mean Corpuscular Hemoglobin 31.9 pg (28.0-33.3); Mean Corpuscular Volume 97.4 fL (83.0-100.0); Mean Platelet Volume 12.8 fL (9.4-12.4); Monocytes # 0.3 K/mcL (0.0-1.3); Neutrophils # 6.2 K/mcL (1.6-8.9); Nucleated Red Blood Cells 0.3 /100 WBC (0); Platelet Count 160 K/mcL (140-400); Red Blood Count 3.51 M/mcL (3.82-4.97); Red Cell Distribution Width 13.5 % (11.5-14.5); Segmented Neutrophils % 82.1 %
[2017-08-01 07:55] LABS: Calcium 9.6 mg/dL (8.6-10.3); Potassium 3.2 mEq/L (3.5-5.1)
[2017-08-01] MEDS: *HR* HYDROcodone/Acet 10/325 mg TABLET PO SCH ×3 (08:35→21:11)
[2017-08-01] MEDS: Gabapentin 100 MG CAPSULE PO SCH ×3 (08:36→21:11)
[2017-08-01] MEDS: Nystatin POWDER 30 GM BOTTLE TP SCH ×3 (08:39→21:15)
[2017-08-01] MEDS: Nystatin Cream 15 GM TUBE TP SCH ×3 (08:40→21:15)
[2017-08-01] MEDS: Ondansetron ODT 4 MG TAB.RAPDIS PO PRN (08:47)
[2017-08-01] MEDS ORDERED: (Liraglutide [Victoza 2-Pak] 0.6 MG) PO SCH (09:00)
[2017-08-01] MEDS ORDERED: FLUoxetine 20 MG CAPSULE PO SCH (09:00)
[2017-08-01] MEDS ORDERED: Isosorbide MONOnitrate (24 HR) 30 MG TAB.ER.24H PO SCH (09:00)
[2017-08-01] MEDS ORDERED: hydroCHLOROthiazide 25 MG TABLET PO SCH (09:00)
[2017-08-01] MEDS ORDERED: Hydrocortisone 10 MG TABLET PO SCH (09:00)
--- NOTE | 2017-08-01 09:29 | Nephrology Consult Note ---
Date of Encounter: 08/01/17 Time of Encounter: 09:30 Assessment and Plan (1) ESRD (end stage renal disease) on dialysis Current Visit: Yes Status: Acute Current regimen MMF at [facility] with Dr. Delgado. Avoid Nephrotoxins, continue to renal dose all medications. Renal Diet. (2) Altered mental status Current Visit: Yes Status: Acute Improving, A/O x 3. Qualifiers: Altered mental status type: somnolence Qualified Code(s): R40.0 - Somnolence (3) Obesity Current Visit: Yes Status: Acute Did have gastric sleeve . Encouraged compliance. Qualifiers: Body mass index: BMI 50.0-59.9 Qualified Code(s): E66.9 - Obesity, unspecified; Z68.43 - Body mass index (BMI) 50-59.9 , adult (4) Adrenal insufficiency Current Visit: No Status: Acute Resolving, per primary team. History of Present Illness - Reason for Consult Consult date: 07/31/17 end stage renal disease - Chief Complaint AMS - History of Present Illness Ms. Jimenez is a 51 year old female of Dr. Delgado's, HD regimen is MWF in [place]. She was supposed to go to HD Monday but missed because she was not feeling well. PMH: ESRD, O2 dependent COPD (3-4 L nasal cannula), adrenal insufficiency, HTN, HLD, and DM. Lives at home and has daughter who cares for her. Did have a gastric bypass on 07/06/17. Did have to go back to facility for a puncture site infection, that she has been packing at home. It is bandaged at this time. Denies n/v/d. Denies CP, SOB. She was taken to ED via squad after her daughter thought she seemed "off". When the patient was more alert on Monday she described the symptoms similiar to when she is in adrenal crisis. She does take 15 mg of Prednisone at home TID for maintenance, and can inject herself with IM doses at home per her property claims adjuster Dr. Ortega at [facility]. Random Cortisol was check and was 3.8. This was after a dose of 4 mg IV Decadron. Past Med Surg Social Fam HX - Past Medical History Medical history: non-contributory, arthritis, asthma, atrial fibrillation, CHF, COPD, coronary artery disease, diabetes, dialysis, GERD, hyperlipidemia, hypertension, migraine, renal disease, seizures, thyroid disease Psychiatric history: depression - Past Surgical History Surgical History: non-contributory, cholecystectomy - Social History Smoking Status: Never smoker Smokeless Tobacco Status: No Alcohol use: none Drug use: none - Family History Mother Living Status: Hx Family Cardiac Disorders: Yes Father Living Status: Hx Family Cardiac Disorders: Yes Medications and Allergies RX: Dexlansoprazole [Dexilant] 60 mg PO DAILY 01/24/16 [History] RX: FLUoxetine HCl [Prozac] 40 mg PO DAILY 01/24/16 [History] RX: Fluticasone/Salmeterol [Advair Hfa 230-21 Mcg Inhaler] 2 puff IH BID [History] RX: Insulin LISPRO [HumaLOG] 0 units SQ TIDWM 01/24/16 [History] RX: Ipratropium/Albuterol Neb [Duoneb] 3 ml IH Q6HR 01/24/16 [History] RX: Montelukast [Singulair] 10 mg PO DAILY 01/24/16 [History] RX: Ondansetron HCl [Zofran] 4 mg PO Q8H PRN 01/24/16 [History] RX: hydrOXYzine HCl [Hydroxyzine HCl] 25 mg PO TID 01/24/16 [History] Bumetanide [Bumex] 2 mg PO BID 05/06/16 [History] Hydrocortisone [Cortef] 10 mg PO DAILY #25 tablet 01/10/17 [Rx] Aspirin [Lo-Dose Aspirin EC] 81 mg PO DAILY 07/31/17 [History] Atorvastatin [Lipitor] 40 mg PO HS 07/31/17 [History] Clindamycin Phosphate [Cleocin T] 1 appl TP DAILY 07/31/17 [History] Hydrochlorothiazide [Microzide] 12.5 mg PO DAILY 07/31/17 [History] Isosorbide MONOnitrate (24 HR) [Imdur] 30 mg PO DAILY 07/31/17 [History] Liraglutide [Victoza 2-Nilson] 0.6 mg PO DAILY 07/31/17 [History] Metoprolol Tartrate [Lopressor] 50 mg PO BID 07/31/17 [History] Nystatin POWDER [Nystop] 1 appl TP TID 07/31/17 [History] RX: Allopurinol [Zyloprim 100 MG] 100 mg PO DAILY 07/31/17 [History] RX: Gabapentin [Neurontin] 100 mg PO TID 07/31/17 [History] RX: HYDROcodone/Acet 10/325 mg [[place] 10-325 mg] 1 tab PO TID 07/31/17 [History] RX: Nystatin Cream [Mycostatin Cream] 1 appl TP TID 07/31/17 [History] RX: Polyethylene Glycol 3350 [MiraLAX] 17 gm PO DAILY 07/31/17 [History] 3 Allergy/AdvReac Type Severity Reaction Status Date / Time cefdinir Allergy Hives Verified 04/03/17 13:50 ciprofloxacin [From Cipro] Allergy Hives Verified 04/03/17 13:50 levofloxacin [From Levaquin] Allergy Anaphylaxis Verified 04/03/17 13:50 metformin [From Glucophage] Allergy Rash Verified 04/03/17 13:50 Penicillins Allergy Hives Verified 04/03/17 13:50 pioglitazone [From Actos] Allergy Hives Verified 04/03/17 13:50 Sulfa (Sulfonamide Allergy Itching Verified 04/03/17 13:50 Antibiotics) sulfamethoxazole Allergy Itching Verified 04/03/17 13:50 [From Bactrim] trimethoprim [From Bactrim] Allergy Itching Verified 04/03/17 13:50 exenatide [From Byetta] AdvReac See Verified 04/03/17 13:50 Comments vancomycin AdvReac See Verified 04/03/17 13:50 Comments Review of Systems All Systems: reviewed and no additional remarkable complaints except as stated ( as per HPI.) Exam - Vital Signs Vital signs: Initial Vital Signs Temp Pulse Resp BP Pulse Ox 98.4 F 62 18 124/82 100 07/31/17 05:27 07/31/17 05:27 07/31/17 05:27 07/31/17 05:27 07/31/17 05:27 Vital Signs - Last 8 Hours Temp Pulse Resp BP Pulse Ox 08/01/17 07:31 98.2 F 79 17 108/44 94 08/01/17 05:06 68 08/01/17 04:16 16 100 08/01/17 04:12 97.8 F 66 16 109/57 100 Intake and Output 07/31/17 08/01/17 08/01/17 23:59 07:59 15:59 Intake Total 60 / 60 Output Total 0 / 0 700 / 700 Balance 60 / 60 -700 / -700 Intake: Oral 60 / 60 Output: Urine 0 / 0 700 / 700 Other: Meal Dinner Breakfast Percent of Meal Consumed 100% 100% # Voids 0 # Bowel Movements 0 Weight 154.3 kg Blood Glucose* 270 154 Patient Weight 08/01/17 23:59 Weight 154.3 kg - General Appearance General appearance: obese, chronically ill EENT: ATNC, hearing intact, vision intact Neck: supple Respiratory: clear Cardiology: edema (Trace bilateral edema. ), normal S1, normal S2 - Dialysis Access Dialysis Vascular Access: Arteriovenous Fistula thrill: Yes bruit: Yes Additional Comments: RLE. Gastrointestinal: normoactive bowel sounds, no tenderness, no guarding (Healing puncture sites noted. RLQ site bandaged with opsite and 4x4. ) Integumentary: no rash, warm and dry, chronic venous stasis Neurologic: alert and oriented x3 Psychiatric: mood/affect appropriate, cooperative Results - Lab Results 08/01/17 06:22 08/01/17 07:18 Most recent lab results Calcium 9.6 mg/dL (8.6-10.3) 08/01/17 07:18 Consult Discharge Plan - Plan Referrals: Keli Montilla DO [Primary Care Provider] -
[2017-08-01 10:07] LABS: Hepatitis B Surface Antigen Nonreactive (Nonreactive)
[2017-08-01] MEDS: Budesonide/Formoterol 160/4.5 MDI IH SCH ×2 (10:46→21:38)
[2017-08-01] MEDS: Aspirin Enteric Coated 81 MG Tablet PO SCH (11:08)
[2017-08-01] MEDS: Bumetanide 1 MG TABLET PO SCH ×2 (11:09→21:11)
[2017-08-01] MEDS ORDERED: *HR* Dextrose 50 % in Water (Syg) 50 ML SYRINGE IVP PRN (11:29)
[2017-08-01] MEDS ORDERED: D5% in Water 1,000 ML IVC PRN (11:29)
[2017-08-01] MEDS ORDERED: Dextrose Gel 15 GM/37.5 ML TUBE PO PRN ×2 (11:29)
[2017-08-01] MEDS: Insulin LISPRO 300 UNITS/3 ML VIAL SQ SCH ×3 (13:27→21:18)
[2017-08-01] MEDS: cefTRIAXone 2,000 MG in Water for inj. (sterile) 20 ML 20 ML IVP SCH (14:39)
[2017-08-01] MEDS: Levalbuterol Neb 0.63 MG/3 ML IH SCH ×2 (15:47→21:38)
[2017-08-01 16:39] LABS: blaKPC Carbapenem-Resist Gene Not Detected (Not Detect)
[2017-08-01 16:41] LABS: Enterococcus by PCR Not Detected (Not Detect); mecA Methicillin-Resist Gene ***DETECTED*** (Not Detect); vanA/B Vancomycin-Resist Genes Not Detected (Not Detect)
[2017-08-01 16:42] LABS: Acinetobacter baumannii by PCR Not Detected (Not Detect); Candida albicans by PCR Not Detected (Not Detect); Candida glabrata by PCR Not Detected (Not Detect); Candida krusei by PCR Not Detected (Not Detect); Candida parapsilosis by PCR Not Detected (Not Detect); Candida tropicalis by PCR Not Detected (Not Detect); Escherichia coli by PCR Not Detected (Not Detect); Klebsiella oxytoca by PCR Not Detected (Not Detect); Klebsiella pneumoniae by PCR Not Detected (Not Detect); Pseudomonas aeruginosa by PCR Not Detected (Not Detect); Serratia marcescens by PCR Not Detected (Not Detect); Staphylococcus aureus by PCR Not Detected (Not Detect); Streptococcus agalactiae(B)PCR Not Detected (Not Detect); Streptococcus by PCR Not Detected (Not Detect); Streptococcus pneumoniae PCR Not Detected (Not Detect); Streptococcus pyogenes (A) PCR Not Detected (Not Detect)
--- NOTE | 2017-08-01 16:50 | Internal Med Progress Note ---
Date of Encounter: 08/01/17 Time of Encounter: 10:45 - Assessment and plan (1) Adrenal insufficiency Current Visit: Yes Status: Acute Assessment and plan: Patient has history of adrenal crisis, noted to be on oral hydrocortisone at home. Random cortisol level noted to be low normal at 3.8. Started on stress dose steroids with 4 mg IV Decadron twice daily. Continue for now. (2) Urinary tract infection Current Visit: Yes Status: Acute Assessment and plan: Urine culture grows gram-positive cocci, could be enterococcus. One out of 3 blood cultures grew gram-positive cocci. Will change antibiotics from Rocephin to IV Zyvox at this time. Qualifiers: Urinary tract infection type: site unspecified Hematuria presence: without hematuria Qualified Code(s): N39.0 - Urinary tract infection, site not specified (3) DVT prophylaxis Current Visit: Yes Status: Acute (4) Diabetes mellitus Current Visit: Yes Status: Chronic Assessment and plan: Blood sugars noted to be controlled for the most part with a few elevated readings. Continue Accu-Chek blood glucose monitoring with sliding scale insulin as needed. Diabetic diet. Qualifiers: Diabetes mellitus type: type 2 Diabetes mellitus complication status: with kidney complications Diabetes mellitus complication detail: with chronic kidney disease Chronic kidney disease stage: on chronic dialysis Qualified Code(s): E11.22 - Type 2 diabetes mellitus with diabetic chronic kidney disease ; N18.6 - End stage renal disease; Z79.4 - intermediate teacher (current) use of insulin; Z99.2 - Dependence on renal dialysis (5) Essential hypertension Current Visit: Yes Status: Chronic Assessment and plan: Blood pressure noted to be well controlled. Continue home medications. (6) CHF (congestive heart failure) Current Visit: Yes Status: Chronic Qualifiers: Heart failure type: systolic Heart failure chronicity: chronic Qualified Code(s): I50.22 - Chronic systolic (congestive) heart failure (7) CAD (coronary artery disease) Current Visit: Yes Status: Chronic Qualifiers: Coronary Disease-Associated Artery/Lesion type: [place] artery [place] vs. transplanted heart: [place] heart Associated angina: without angina Qualified Code(s): I25.10 - Atherosclerotic heart disease of [place] coronary artery without angina pectoris (8) ESRD (end stage renal disease) on dialysis Current Visit: Yes Status: Chronic Assessment and plan: Nephrology consulted for hemodialysis needs, plan for dialysis in a.m. (9) Encephalopathy acute Current Visit: Yes Status: Resolved Assessment and plan: Acute encephalopathy-likely metabolic due to underlying infection and adrenal insufficiency. Currently improved back to baseline. (10) Chronic respiratory failure Current Visit: Yes Status: Chronic Assessment and plan: Noted to be on continuous home oxygen and nocturnal CPAP for underlying CHF and obstructive sleep apnea. Qualifiers: Respiratory failure complication: hypoxia Qualified Code(s): J96.11 - Chronic respiratory failure with hypoxia (11) Morbid obesity Current Visit: Yes Status: Chronic - Time Spent With Patient Total time spent is greater than 50% in coordination of care (as documented) at patient's floor/unit and/or counseling patient: - Subjective Interval history: Reports feeling much better; patient is very talkative; improved confusion, weakness; she believes its due to adrenal crisis; no fever/chills, chest pain, shortness of breath; - Constitutional Vitals: Temp Pulse Resp BP Pulse Ox 97.8 F 76 18 102/53 100 08/01/17 16:16 08/01/17 16:16 08/01/17 16:16 08/01/17 16:16 08/01/17 16:16 General appearance: Present: A&O X 3, morbidly obese, answers questions appropriately - Respiratory Respiratory exam: Present: CTAB. Absent: accessory muscle use, rales, rhonchi, wheezes - Cardiovascular Cardiovascular exam: Present: RRR, +S1, +S2. Absent: diastolic murmur, gallop, rubs, systolic murmur - GI/Abdominal GI/Abdominal exam: Present: normal bowel sounds, soft (obese), no peritoneal signs. Absent: distended, tenderness - Extremities Exam Extremities exam: Present: full ROM, pedal edema, warm, radial pulses palpable and symmetrical. Absent: calf tenderness, cyanotic - Neurological Exam Neurological exam: Present: CN II-XII intact, oriented X3, no focal deficits. Absent: pronater drift, facial droop, speech deficit Internal Medicine: Result - Labs CBC & Chem 7: 08/02/17 04:45 08/02/17 04:45 Labs: Short CBC 08/01/17 Range/Units 06:22 WBC 7.6 (4.3-11.1) K/mcL Hgb 11.2 L (11.5-15.4) g/dL Hct 34.2 L (35.3-44.9) % Plt Count 160 (140-400) K/mcL Neutrophils # 6.2 (1.6-8.9) K/mcL BMP 08/01/17 07:18 Sodium 142 Potassium 3.2 L Chloride 102 Carbon Dioxide 28 BUN 56 H Creatinine 5.56 H Glucose 163 H Calcium 9.6 - Impressions Impressions Head CT 07/31/17 18:10 IMPRESSION: Limited exam with no definite acute intracranial abnormality. D/ / Uziel Burgos MD / Uziel Burgos MD Interpreting Provider: Uziel Burgos MD Consult Discharge Plan - Plan Referrals: Keli Montilla DO [Primary Care Provider] - (SENT A WEB REQUEST ON 08-01-17 @ [phone])
[2017-08-02 02:13] LABS: Hepatitis B Surface Antibody 0.15 mIU/mL
[2017-08-02] MEDS: Levalbuterol Neb 0.63 MG/3 ML IH SCH ×4 (03:58→21:14)
[2017-08-02 05:05] LABS: Hematocrit 34.5 % (35.3-44.9); Hemoglobin 11.1 g/dL (11.5-15.4); Mean Corpuscular HGB Conc 32.2 g/dL (31.6-35.5); Mean Corpuscular Hemoglobin 31.4 pg (28.0-33.3); Mean Corpuscular Volume 97.7 fL (83.0-100.0); Mean Platelet Volume 12.5 fL (9.4-12.4); Platelet Count 160 K/mcL (140-400); Red Blood Count 3.53 M/mcL (3.82-4.97); Red Cell Distribution Width 13.6 % (11.5-14.5)
[2017-08-02 05:06] LABS: Hematocrit 34.4 % (35.3-44.9); Hemoglobin 11.1 g/dL (11.5-15.4); Immature Granulocytes % 0.5 % (0-4); Lymphocytes # 0.9 K/mcL (0.6-4.6); Mean Corpuscular HGB Conc 32.3 g/dL (31.6-35.5); Mean Corpuscular Hemoglobin 31.5 pg (28.0-33.3); Mean Corpuscular Volume 97.7 fL (83.0-100.0); Mean Platelet Volume 12.6 fL (9.4-12.4); Monocytes # 0.5 K/mcL (0.0-1.3); Monocytes % 6.2 %; Neutrophils # 6.7 K/mcL (1.6-8.9); Platelet Count 153 K/mcL (140-400); Red Blood Count 3.52 M/mcL (3.82-4.97); Red Cell Distribution Width 13.6 % (11.5-14.5); Segmented Neutrophils % 82.3 %
[2017-08-02 05:24] LABS: Calcium 9.5 mg/dL (8.6-10.3); Potassium 4.1 mEq/L (3.5-5.1)
[2017-08-02] MEDS: *HR* Heparin 5,000 UNIT/ML VIAL SQ SCH ×3 (05:44→20:55)
[2017-08-02] MEDS: Dexamethasone 4 MG/ML VIAL IVP SCH ×2 (05:45→19:43)
--- NOTE | 2017-08-02 09:43 | Nephrology Progress Note ---
Date of Encounter: 08/02/17 Time of Encounter: 09:41 - Assessment and Plan (1) ESRD (end stage renal disease) on dialysis Current Visit: Yes Status: Acute MWF [place] of Dr. Delgado. Has not had a treatment since Monday. HD ordered for today. Continue to renal dose all medications and avoid nephrotoxins. Renal Diet. (2) Altered mental status Current Visit: Yes Status: Acute Resolved. A/O x 3. Qualifiers: Altered mental status type: somnolence Qualified Code(s): R40.0 - Somnolence (3) Obesity Current Visit: Yes Status: Acute Recently had weight loss surgery. Encouraged compliance. Qualifiers: Body mass index: BMI 50.0-59.9 Qualified Code(s): E66.9 - Obesity, unspecified; Z68.43 - Body mass index (BMI) 50-59.9 , adult (4) Adrenal insufficiency Current Visit: No Status: Acute Resolving. Per primary team. Subjective Principal diagnosis: JESSEE Interval history: Pt seen and examined. No complaints. Objective - Vital Signs Vital signs: Vital Signs Temp Pulse Resp BP Pulse Ox 08/02/17 07:16 97.6 F 63 16 110/62 99 08/02/17 04:33 97.9 F 57 11 113/71 100 08/02/17 03:58 16 100 08/01/17 23:47 97.6 F 74 20 122/67 99 08/01/17 21:38 16 97 08/01/17 19:48 98.1 F 83 19 133/68 97 08/01/17 16:16 97.8 F 76 18 102/53 100 08/01/17 15:49 16 94 08/01/17 14:31 94 08/01/17 11:23 84 106/84 08/01/17 11:21 98.1 F 84 16 106/64 94 08/01/17 10:46 18 95 Intake and Output 08/01/17 08/02/17 08/02/17 23:59 07:59 15:59 Intake Total 300 / 300 240 / 240 Balance 300 / 300 240 / 240 Intake: IV Fluids 300 / 300 Zyvox Premix 600mg/300mL 600 mg 300 / 300 In 300 ml @ 150 mls/hr IVPB Q12HR [facility] Rx#:[id number] Oral 240 / 240 Other: Meal Dinner Breakfast Percent of Meal Consumed 100% 75% Blood Glucose* 205 174 - General Appearance General appearance: Present: obese, chronically ill EENT: Present: ATNC, hearing intact, vision intact Neck: Present: supple Respiratory: Present: clear Cardiology: Present: no murmurs, normal S1, normal S2 Dialysis Vascular Access: Arteriovenous Fistula thrill: Yes bruit: Yes Additional Comments: RLE. Gastrointestinal: Present: normoactive bowel sounds, no tenderness, no guarding Integumentary: Present: no rash, warm and dry Neurologic: Present: alert and oriented x3 Psychiatric: Present: mood/affect appropriate, cooperative - Lab 08/02/17 04:45 08/02/17 04:45 Most recent lab results Calcium 9.5 mg/dL (8.6-10.3) 08/02/17 04:45 Consult Discharge Plan - Plan Referrals: Keli Montilla DO [Primary Care Provider] - (SENT A WEB REQUEST ON 08-01-17 @ [phone])
[2017-08-02] MEDS: Insulin LISPRO 300 UNITS/3 ML VIAL SQ SCH ×4 (09:58→20:57)
[2017-08-02] MEDS: Aspirin Enteric Coated 81 MG Tablet PO SCH ×2 (10:01→20:21)
[2017-08-02] MEDS: Bumetanide 1 MG TABLET PO SCH ×3 (10:02→20:54)
[2017-08-02] MEDS: Gabapentin 100 MG CAPSULE PO SCH ×3 (10:02→20:54)
[2017-08-02] MEDS: Nystatin POWDER 30 GM BOTTLE TP SCH ×3 (10:04→20:57)
[2017-08-02] MEDS ORDERED: 0.9 % Sodium Chloride 250 ML IVC PRN (10:04)
[2017-08-02] MEDS: Nystatin Cream 15 GM TUBE TP SCH ×3 (10:04→20:57)
[2017-08-02] MEDS: *HR* HYDROcodone/Acet 10/325 mg TABLET PO SCH ×3 (10:08→20:54)
[2017-08-02] MEDS ORDERED: 0.9 % Sodium Chloride 1,000 ML PRIME SCH (10:15)
[2017-08-02] MEDS: Budesonide/Formoterol 160/4.5 MDI IH SCH ×2 (10:44→21:17)
[2017-08-02] MEDS ORDERED: 0.9 % Sodium Chloride 2,000 ML ONE (11:39)
--- NOTE | 2017-08-02 19:28 | Internal Med Progress Note ---
Date of Encounter: 08/02/17 Time of Encounter: 10:40 - Assessment and plan (1) Adrenal insufficiency Current Visit: Yes Status: Acute Assessment and plan: Patient has history of adrenal crisis, noted to be on oral hydrocortisone at home. Random cortisol level noted to be low normal at 3.8. ACTH low, patient may need Fludrocortisone at discharge; will taper down IV steroids- Decadron; (2) Urinary tract infection Current Visit: Yes Status: Acute Assessment and plan: Urine culture grows enterococcus fecium. One out of 3 blood cultures grew gram- positive cocci. Continue IV Zyvox; repeat blood cultures; Qualifiers: Urinary tract infection type: site unspecified Hematuria presence: without hematuria Qualified Code(s): N39.0 - Urinary tract infection, site not specified (3) DVT prophylaxis Current Visit: Yes Status: Acute (4) Diabetes mellitus Current Visit: Yes Status: Chronic Assessment and plan: Blood sugars noted to be controlled for the most part with a few elevated readings. Continue Accu-Chek blood glucose monitoring with sliding scale insulin as needed. Diabetic diet. Qualifiers: Diabetes mellitus type: type 2 Diabetes mellitus complication status: with kidney complications Diabetes mellitus complication detail: with chronic kidney disease Chronic kidney disease stage: on chronic dialysis Qualified Code(s): E11.22 - Type 2 diabetes mellitus with diabetic chronic kidney disease ; N18.6 - End stage renal disease; Z79.4 - shelter (current) use of insulin; Z99.2 - Dependence on renal dialysis (5) Essential hypertension Current Visit: Yes Status: Chronic (6) CHF (congestive heart failure) Current Visit: Yes Status: Chronic Qualifiers: Heart failure type: systolic Heart failure chronicity: chronic Qualified Code(s): I50.22 - Chronic systolic (congestive) heart failure (7) CAD (coronary artery disease) Current Visit: Yes Status: Chronic Qualifiers: Coronary Disease-Associated Artery/Lesion type: [place] artery [place] vs. transplanted heart: [place] heart Associated angina: without angina Qualified Code(s): I25.10 - Atherosclerotic heart disease of [place] coronary artery without angina pectoris (8) ESRD (end stage renal disease) on dialysis Current Visit: Yes Status: Chronic Assessment and plan: Nephrology consulted for hemodialysis needs, plan for dialysis today. (9) Encephalopathy acute Current Visit: Yes Status: Resolved (10) Chronic respiratory failure Current Visit: Yes Status: Chronic Qualifiers: Respiratory failure complication: hypoxia Qualified Code(s): J96.11 - Chronic respiratory failure with hypoxia (11) Morbid obesity Current Visit: Yes Status: Chronic - Time Spent With Patient Total time spent is greater than 50% in coordination of care (as documented) at patient's floor/unit and/or counseling patient: - Subjective Interval history: No new complaints; improved weakness and resolved confusion; awaiting HD; no nausea, vomiting, abdominal pain; - Constitutional Vitals: Temp Pulse Resp BP Pulse Ox 98.3 F 69 20 118/61 98 08/02/17 19:04 08/02/17 14:10 08/02/17 19:04 08/02/17 19:04 08/02/17 14:10 General appearance: Present: A&O X 3, morbidly obese, answers questions appropriately - Respiratory Respiratory exam: Present: CTAB (coarse breath sounds B/L). Absent: accessory muscle use, rales, rhonchi, wheezes - Cardiovascular Cardiovascular exam: Present: RRR, +S1, +S2, systolic murmur. Absent: diastolic murmur, gallop, rubs - GI/Abdominal GI/Abdominal exam: Present: normal bowel sounds, soft (obese), no peritoneal signs. Absent: distended, tenderness - Extremities Exam Extremities exam: Present: full ROM, pedal edema, warm, radial pulses palpable and symmetrical. Absent: calf tenderness, cyanotic - Neurological Exam Neurological exam: Present: CN II-XII intact, oriented X3, no focal deficits. Absent: pronater drift, facial droop, speech deficit Internal Medicine: Result - Labs CBC & Chem 7: 08/02/17 04:45 08/02/17 04:45 Labs: Short CBC 08/02/17 08/02/17 Range/Units 04:45 04:45 WBC 8.2 8.2 (4.3-11.1) K/mcL Hgb 11.1 L 11.1 L (11.5-15.4) g/dL Hct 34.5 L 34.4 L (35.3-44.9) % Plt Count 160 153 (140-400) K/mcL Neutrophils # 6.7 (1.6-8.9) K/mcL BMP 08/02/17 04:45 Sodium 139 Potassium 4.1 D Chloride 100 Carbon Dioxide 27 BUN 63 H Creatinine 5.47 H Glucose 172 H Calcium 9.5 Consult Discharge Plan - Plan Referrals: Keli Montilla DO [Primary Care Provider] - (SENT A WEB REQUEST ON 08-01-17 @ 3532)
[2017-08-02] MEDS: Ondansetron ODT 4 MG TAB.RAPDIS PO PRN (20:18)
[2017-08-02] MEDS: Isosorbide MONOnitrate (24 HR) 30 MG TAB.ER.24H PO SCH (20:21)
[2017-08-03] MEDS: Levalbuterol Neb 0.63 MG/3 ML IH SCH ×2 (03:45→10:58)
[2017-08-03] MEDS: Ondansetron ODT 4 MG TAB.RAPDIS PO PRN (04:23)
[2017-08-03 04:48] LABS: Hematocrit 32.4 % (35.3-44.9); Hemoglobin 10.6 g/dL (11.5-15.4); Mean Corpuscular HGB Conc 32.7 g/dL (31.6-35.5); Mean Corpuscular Hemoglobin 31.3 pg (28.0-33.3); Mean Corpuscular Volume 95.6 fL (83.0-100.0); Mean Platelet Volume 12.3 fL (9.4-12.4); Platelet Count 142 K/mcL (140-400); Red Blood Count 3.39 M/mcL (3.82-4.97); Red Cell Distribution Width 13.1 % (11.5-14.5)
[2017-08-03 05:11] LABS: Calcium 9.2 mg/dL (8.6-10.3); Potassium 3.8 mEq/L (3.5-5.1)
[2017-08-03] MEDS: Dexamethasone 4 MG/ML VIAL IVP SCH (06:16)
[2017-08-03] MEDS: *HR* Heparin 5,000 UNIT/ML VIAL SQ SCH (06:23)
[2017-08-03 07:19] VITALS: BP 97/61
[2017-08-03] MEDS: Aspirin Enteric Coated 81 MG Tablet PO SCH (08:47)
[2017-08-03] MEDS: Isosorbide MONOnitrate (24 HR) 30 MG TAB.ER.24H PO SCH (08:47)
[2017-08-03] MEDS: Bumetanide 1 MG TABLET PO SCH (08:47)
[2017-08-03] MEDS: Gabapentin 100 MG CAPSULE PO SCH (08:48)
[2017-08-03] MEDS: *HR* HYDROcodone/Acet 10/325 mg TABLET PO SCH (08:49)
[2017-08-03] MEDS: Nystatin Cream 15 GM TUBE TP SCH (08:50)
[2017-08-03] MEDS: Nystatin POWDER 30 GM BOTTLE TP SCH (08:50)
[2017-08-03] MEDS: Insulin LISPRO 300 UNITS/3 ML VIAL SQ SCH (08:52)
--- NOTE | 2017-08-03 10:00 | Nephrology Progress Note ---
Date of Encounter: 08/03/17 Time of Encounter: 10:00 - Assessment and Plan (1) ESRD (end stage renal disease) on dialysis Status: Chronic MWF [place] of Dr. Delgado. HD completed yesterday. Continue to renal dose all medications and avoid nephrotoxins. Renal Diet. Getting D/Jonathan today. (2) Altered mental status Status: Acute Resolved. A/O x 3. Qualifiers: Altered mental status type: unspecified Qualified Code(s): R41.82 - Altered mental status, unspecified (3) Obesity Status: Acute Recently had weight loss surgery. Encouraged compliance. Qualifiers: Body mass index: BMI 50.0-59.9 Qualified Code(s): E66.9 - Obesity, unspecified; Z68.43 - Body mass index (BMI) 50-59.9 , adult (4) Adrenal insufficiency Status: Acute Resolving. Per primary team. Patient will follow up with Dr. Montilla Subjective Principal diagnosis: JESSEE Interval history: Pt seen and examined. No complaints, is ready to go home. Objective - Vital Signs Vital signs: Vital Signs Temp Pulse Resp BP Pulse Ox 08/03/17 08:45 98.1 F 60 18 97/61 97 08/03/17 07:17 98.1 F 60 18 97/61 97 08/03/17 05:18 98.4 F 67 18 123/66 97 08/02/17 23:59 98.3 F 70 18 111/56 97 08/02/17 21:18 18 100 08/02/17 19:46 98.1 F 85 18 118/79 95 08/02/17 19:04 98.3 F 20 118/61 08/02/17 19:00 113/67 08/02/17 18:45 115/65 08/02/17 18:30 121/72 08/02/17 18:15 114/72 08/02/17 18:00 110/59 08/02/17 17:45 119/61 08/02/17 17:30 119/63 08/02/17 17:15 116/65 08/02/17 17:00 121/74 08/02/17 16:45 113/87 08/02/17 16:30 109/63 08/02/17 16:15 114/67 08/02/17 16:00 97.3 F L 22 124/61 05/16/18 14:10 69 98 08/02/17 12:45 66 08/02/17 11:48 98.0 F 65 18 110/55 98 Intake and Output 08/02/17 08/03/17 08/03/17 23:59 07:59 15:59 Intake Total 900 / 900 0 / 0 Output Total 3600 / 3600 200 / 200 0 / 0 Balance -2700 / -2700 -200 / -200 0 / 0 Intake: IV Fluids 300 / 300 Zyvox Premix 600mg/300mL 600 mg 300 / 300 In 300 ml @ 150 mls/hr IVPB Q12HR [facility] Rx#:[id number] Oral 0 / 0 0 / 0 Intake, Rinseback and Flushes 600 / 600 Output: Urine 200 / 200 0 / 0 Total Dialysis (HD) Output 3600 / 3600 Other: Meal Breakfast Percent of Meal Consumed 100% Stool Size Large Small Stool Consistency loose soft Stool Color Brown Brown # Voids 1 Blood Glucose* 172 146 146 Hemodialysis Net Fluid Removed 3000 (mL) - General Appearance General appearance: Present: obese EENT: Present: ATNC, hearing intact, vision intact Neck: Present: supple Respiratory: Present: clear Cardiology: Present: edema (trace bilateral lower extremities.), normal S1, normal S2 Dialysis Vascular Access: Arteriovenous Fistula (RLE.) thrill: Yes bruit: Yes Gastrointestinal: Present: normoactive bowel sounds, no tenderness, no guarding Integumentary: Present: no rash, warm and dry Neurologic: Present: alert and oriented x3 Psychiatric: Present: mood/affect appropriate, cooperative - Lab 08/03/17 04:06 08/03/17 04:06 Most recent lab results Calcium 9.2 mg/dL (8.6-10.3) 08/03/17 04:06 Consult Discharge Plan - Plan Instructions: Acute Respiratory Distress Syndrome (DC), Urinary Tract Infection in Women (DC) Additional Instructions: F/up with PCP in 1-2 weeks F/up with Endocrinology as scheduled F/up for HD 3 times/week- MWF Referrals: Keli Montilla DO [Primary Care Provider] - (SENT A WEB REQUEST ON 08-01-17 @ 3690) Prescriptions: Linezolid [Zyvox] 600 mg PO BID #8 tablet
--- NOTE | 2017-08-03 10:36 | Discharge Summary ---
- NOTES TO OUTPATIENT PROVIDER Notes to Outpatient Provider: Adrenal crisis, needs Endocrinology f/up, on Zyvox for suspected Enterococcus UTI Orders not resulted at time of discharge: Pending orders 08/02/17 04:45 Culture,Blood [BC] AM 0400 08/04/17 04:00 Basic Metabolic Panel AM 0400 Complete Blood Count w/o Diff [HEME] AM 0400 08/05/17 04:00 Basic Metabolic Panel AM 0400 Complete Blood Count w/o Diff [HEME] AM 04008/06/17 04:00 Basic Metabolic Panel AM 0400 Complete Blood Count w/o Diff [HEME] AM 0400 08/07/17 04:00 Basic Metabolic Panel AM 0400 Complete Blood Count w/o Diff [HEME] AM 04008/08/17 04:00 Basic Metabolic Panel AM 0400 Complete Blood Count w/o Diff [HEME] AM 0400 08/09/17 04:00 Basic Metabolic Panel AM 0400 Complete Blood Count w/o Diff [HEME] AM 0400 Date of Encounter: 08/03/17 Time of Encounter: 10:34 - Discharge Diagnosis (1) Adrenal insufficiency Priority: Primary Status: Acute (2) Urinary tract infection Priority: Primary Status: Acute Qualifiers: Urinary tract infection type: site unspecified Hematuria presence: without hematuria Qualified Code(s): N39.0 - Urinary tract infection, site not specified (3) Diabetes mellitus Priority: Secondary Status: Chronic Qualifiers: Diabetes mellitus type: type 2 Diabetes mellitus complication status: with kidney complications Diabetes mellitus complication detail: with chronic kidney disease Chronic kidney disease stage: on chronic dialysis Qualified Code(s): E11.22 - Type 2 diabetes mellitus with diabetic chronic kidney disease ; N18.6 - End stage renal disease; Z79.4 - halfway (current) use of insulin; Z99.2 - Dependence on renal dialysis (4) Essential hypertension Priority: Secondary Status: Chronic (5) CHF (congestive heart failure) Priority: Secondary Status: Chronic Qualifiers: Heart failure type: systolic Heart failure chronicity: chronic Qualified Code(s): I50.22 - Chronic systolic (congestive) heart failure (6) CAD (coronary artery disease) Priority: Secondary Status: Chronic Qualifiers: Coronary Disease-Associated Artery/Lesion type: [place] artery [place] vs. transplanted heart: [place] heart Associated angina: without angina Qualified Code(s): I25.10 - Atherosclerotic heart disease of [place] coronary artery without angina pectoris (7) ESRD (end stage renal disease) on dialysis Priority: Secondary Status: Chronic (8) Encephalopathy acute Priority: Primary Status: Resolved (9) Chronic respiratory failure Priority: Secondary Status: Chronic Qualifiers: Respiratory failure complication: hypoxia Qualified Code(s): J96.11 - Chronic respiratory failure with hypoxia (10) Morbid obesity Priority: Secondary Status: Chronic Hospital course: Ms. Jimenez is a 51 year old female with the above medical problems, admitted with confusion, weakness. She was noted to have adrenal crisis with low normal random cortisol level and low ACTH, started on stress dose IV steroids, now converted to pO meds. Has UTI, urine culture grows Enterococcus fecium, antibiotics changed to Zyvox. 1 out 3 blood cultures grew staph epidermidis, which is likely a contaminant. Patient is medically stable for discharge, encouraged to f/up with Endocrinology , she may need addition of Fludrocortisone. Nephrology was consulted, patient received regular HD sessions while in the hospital. Discharge discussed with: patient - Time Spent with Patient Total time spent providing and/or coordinating discharge services: Greater than 30 minutes (45 min) - Discharge Medications Prescriptions: Linezolid [Zyvox] 600 mg PO BID #8 tablet Home Medications: Dexlansoprazole [Dexilant] 60 mg PO DAILY 01/24/16 [History] Fluticasone/Salmeterol [Advair Hfa 230-21 Mcg Inhaler] 2 puff IH BID 01/24/16 [ History] Insulin LISPRO [HumaLOG] 0 units SQ TIDWM 01/24/16 [History] Ipratropium/Albuterol Neb [Duoneb] 3 ml IH Q6HR 01/24/16 [History] Montelukast [Singulair] 10 mg PO DAILY 01/24/16 [History] Ondansetron HCl [Zofran] 4 mg PO Q8H PRN 01/24/16 [History] hydrOXYzine HCl [Hydroxyzine HCl] 25 mg PO TID 01/24/16 [History] Bumetanide [Bumex] 2 mg PO BID 05/06/16 [History] Hydrocortisone [Cortef] 10 mg PO DAILY #25 tablet 01/10/17 [Rx] Allopurinol [Zyloprim 100 MG] 100 mg PO DAILY 07/31/17 [History] Aspirin [Lo-Dose Aspirin EC] 81 mg PO DAILY 07/31/17 [History] Atorvastatin [Lipitor] 40 mg PO HS 07/31/17 [History] Clindamycin Phosphate [Cleocin T] 1 appl TP DAILY 07/31/17 [History] Gabapentin [Neurontin] 100 mg PO TID 07/31/17 [History] HYDROcodone/Acet 10/325 mg [[place] 10-325 mg] 1 tab PO TID 07/31/17 [History] Isosorbide MONOnitrate (24 HR) [Imdur] 30 mg PO DAILY 07/31/17 [History] Liraglutide [Victoza 2-Nilson] 0.6 mg PO DAILY 07/31/17 [History] Metoprolol Tartrate [Lopressor] 50 mg PO BID 07/31/17 [History] Nystatin Cream [Mycostatin Cream] 1 appl TP TID 07/31/17 [History] Nystatin POWDER [Nystop] 1 appl TP TID 07/31/17 [History] Polyethylene Glycol 3350 [MiraLAX] 17 gm PO DAILY 07/31/17 [History] Linezolid [Zyvox] 600 mg PO BID #8 tablet 08/03/17 [Rx] FLUoxetine HCl [Prozac] 40 mg PO DAILY #30 08/08/17 [Rx] Allergies/Adverse Reactions: 3 Allergy/AdvReac Type Severity Reaction Status Date / Time cefdinir Allergy Hives Verified 04/03/17 13:50 ciprofloxacin [From Cipro] Allergy Hives Verified 04/03/17 13:50 levofloxacin [From Levaquin] Allergy Anaphylaxis Verified 04/03/17 13:50 metformin [From Glucophage] Allergy Rash Verified 04/03/17 13:50 Penicillins Allergy Hives Verified 04/03/17 13:50 pioglitazone [From Actos] Allergy Hives Verified 04/03/17 13:50 Sulfa (Sulfonamide Allergy Itching Verified 04/03/17 13:50 Antibiotics) sulfamethoxazole Allergy Itching Verified 04/03/17 13:50 [From Bactrim] trimethoprim [From Bactrim] Allergy Itching Verified 04/03/17 13:50 exenatide [From [place]] AdvReac See Verified 04/03/17 13:50 Comments vancomycin AdvReac See Verified 04/03/17 13:50 Comments Date of admission: 07/31/17 17:07 Primary care physician: Aileen Pinto Consults: 08/02/17 10:15 Consult to Dialysis [CONS] ONCE Discharging clinician: Kanwal Nunes Anticipated date of discharge: 08/03/17 - Constitutional Vitals: Temp Pulse Resp BP Pulse Ox 98.1 F 60 18 97/61 97 08/03/17 08:45 08/03/17 08:45 08/03/17 08:45 08/03/17 08:45 08/03/17 08:45 General appearance: Present: A&O X 3, morbidly obese, answers questions appropriately - Cardiovascular Cardiovascular exam: Present: RRR, +S1, +S2. Absent: diastolic murmur, gallop, rubs, systolic murmur - Patient Status Disposition: Home, Self-Care Condition: Fair Functional capacity at discharge: uses cane/walker Overall status at discharge: patient is progressing back to baseline - Discharge Instructions Instructions: Acute Respiratory Distress Syndrome (DC), Urinary Tract Infection in Women (DC) Follow Up With: Keli Montilla, [Primary Care Provider] - (SENT A WEB REQUEST ON 08-01-17 @ 7655) Additional Instructions: F/up with PCP in 1-2 weeks F/up with Endocrinology as scheduled F/up for HD 3 times/week- MWF - Diet and Activity Activity: resume usual activities as tolerated, wear oxygen at all times, other (CPAP at night) Diet: diabetic diet, low fat, low cholesterol, low salt diet, other (renal diet)
[2017-08-03] MEDS: Budesonide/Formoterol 160/4.5 MDI IH SCH (10:57)
== END 2017-08-03 13:05 | disposition home or self-care (01) | DRG 643 ==
LOC: 3BNU 05:23 → EMEROO 05:23 → 3BNU 10:01 → 2NNU 13:46 → SUATTDRO 17:07
PROVIDERS: ADMIT Hospitalist; ATTEND Internal Medicine